=== PATIENT | male | born 1975 | race Two or more races ===

== ENCOUNTER 2022-03-23 07:21 | Outpatient (CLI) | payer OTHER ==
[~2022-03-23 07:21] MED LIST: COZAAR100 MG PO; LIPITOR40 MG PO
== END 2022-03-23 09:55 | disposition home or self-care (01) ==
LOC: LAB 07:21
PROVIDERS: ATTEND Obstetrics & Gynecology
DX: Z01.818 Encounter for other preprocedural examination (principal); Z20.828 Contact with and (suspected) exposure to other viral communicable diseases